=== PATIENT | female | born 1985 | race Caucasian/White ===

== ENCOUNTER 2016-10-31 06:00 | Outpatient (RCR) | payer MEDICAID ==
[~2016-10-31 06:00] MED LIST: /ONDA4TA; BACT2CRE; CEPH500T; DIFL150T; LEVA500T; SULF800T; TRAM50TA2; VIGAMOX 0.5%
== END 2016-11-13 ==
LOC: M OT 06:00
PROVIDERS: ATTEND Family Medicine
DX: Z51.89 Encounter for other specified aftercare (principal); G56.03 Carpal tunnel syndrome, bilateral upper limbs

== ENCOUNTER → 2018-08-12 | Outpatient (CLI) | payer OTHER ==
[2018-08-12 18:51] LABS: BASO # 0.1 10^3/uL (0.0-0.2); BASO % 0.5 % (0.0-1.0); EOS # 0.1 10^3/uL (0.0-0.50); EOS % 1.3 % (0.0-3.0); HEMATOCRIT 36.6 % (36.0-47.0); HEMOGLOBIN 11.6 g/dl (12.0-15.5); IMMATURE GRANULOCYTE % 0.1 % (0-3.0); LYMPH # 1.7 10^3/uL (1.5-4.5); LYMPH % 16.8 % (24.0-44.0); MEAN CORPUSCULAR HEMOGLOBIN 28.2 pg (27.0-33.0); MEAN CORPUSCULAR HGB CONC 31.7 g/dl (32.0-36.5); MEAN CORPUSCULAR VOLUME 89.1 fl (80.0-96.0); MONO # 0.5 10^3/uL (0.0-0.8); MONO % 4.6 % (0.0-5.0); NEUTROPHILS # 7.6 10^3/uL (1.8-7.7); NEUTROPHILS % 76.7 % (36.0-66.0); PLATELET COUNT, AUTOMATED 340 10^3/uL (150-450); RED BLOOD COUNT 4.11 10^6/uL (4.00-5.40); RED CELL DISTRIBUTION WIDTH 14.4 % (11.5-14.5); WHITE BLOOD COUNT 9.8 10^3/uL (4.0-10.0)
[2018-08-12 21:00] LABS: CHLAMYDIA DNA AMPLIFICATION NEGATIVE (NEGATIVE); GC DNA AMPLIFICATION NEGATIVE (NEGATIVE)
[2018-08-13 11:06] LABS: HBsAg Prenatal NEGATIVE (NEGATIVE); HIV 1&2 SCREEN CENTAUR NEGATIVE (NEGATIVE); RUBELLA IgG QUALITATIVE IMMUNE (IMMUNE)
== END ==
LOC: M SMT 14:44
DX: Z36.89 Encounter for other specified antenatal screening (principal)
CPT/HCPCS: 86762

== ENCOUNTER 2019-05-26 23:32 | Emergency (ER) | payer MEDICAID, SELFPAY ==
[~2019-05-26] VITALS: Ht 167.6 cm; Wt 113.6 kg
[~2019-05-26 23:32] MED LIST changes: -/ONDA4TA; +ONDA-1
[2019-05-27] MEDS ORDERED: MORPHINE 10 MG/ML 1ML VIAL (J2270) IM ONE (00:30)
[2019-05-27] MEDS ORDERED: NORCO 5/325MG TABLET (BULK FOR ED) PO ONE (02:00)
[2019-05-27 02:25] VITALS: BP 137/65
--- NOTE | 2019-05-27 10:23 | REP ---
REASON: Trauma. There is a fracture involving the proximal metaphysis of the tibia which is hairline in appearance. There is communication of the fracture line with the lateral tibial eminence which is considered intra-articular. There is a knee joint effusion. IMPRESSION: Proximal tibial fracture as described above with a joint effusion. Electronically Signed by Fernie Hubbard DO 05/27/2019 12:31 P
== END 2019-05-27 02:26 | disposition home or self-care (01) ==
LOC: M ED 23:32
DX: S82.102A Unspecified fracture of upper end of left tibia, initial encounter for closed fracture (principal); W50.0XXA Accidental hit or strike by another person, initial encounter; Y92.410 Unspecified street and highway as the place of occurrence of the external cause; Z79.899 Other long term (current) drug therapy; Z88.0 Allergy status to penicillin; Z88.5 Allergy status to narcotic agent
CPT/HCPCS: 73564; 73700; 96372; 99284; J2270

== ENCOUNTER → 2019-05-30 | Outpatient (CLI) | payer SELFPAY ==
--- NOTE | 2019-05-31 12:46 | REP ---
MRI LEFT KNEE WITHOUT CONTRAST: 05/30/2019. Clinical history: Trauma. Tibial plateau fracture. Avulsion ACL insertion. Evaluate for ACL tear or meniscal tear. Technique: Axial fat suppressed T2, with coronal and sagittal PD and fat suppressed T2 sequences. Comparison: X-ray and CT left knee 05/27/2019. Findings: There is a large hemarthrosis prominent fluid level in the suprapatellar bursa. Comminuted tibial plateau fracture noted extending vertically and obliquely from the lateral tibial spine toward the tibial metaphysis in the medial tibial plateau. There is intra-articular component and comminution. ACL attachment fragment avulsed. Talus intact. There is abnormal signal in the mid to distal ACL with a few fibers suggest it is contiguous but I suspect a high-grade partial tear. The medial meniscus shows no gross tear. There is some increased signal posterior to the posterior horn on the T2 images and deep to the capsule suggesting meniscocapsular injury. There is no significant chondromalacia or osteochondral defect. The MCL shows some increased signal along the posterior fibers suggesting strain. I do not see a complete tear. There is attenuation of the medial patellar retinaculum and signal increase at the junction of the anterior band. It is bowed by a large effusion extending to the bursal recess about the medial femoral condyle. There is fluid and edema deep and superficial to that structure. The lateral meniscus is without a definite tear. There is fluid posterior to the posterior horn with attenuation of popliteus tendon. Some intrameniscal grade 2 signal suggested, but no loose body or chondromalacia. There is extensive marrow edema in the lateral tibial plateau subjacent to the tibial spines and from that comminuted tibial plate plateau fracture described. The lateral collateral ligamentous complex shows strain and partial tearing of lateral patellar retinaculum is without a definite tear. Large hemarthrosis extending into the bursal recess deep to it and the adjacent to the lateral femoral condyle subcutaneous edema all around the knee. The extensor mechanism shows quadriceps tendon intact. Patella without bone bruise or fracture. There is no chondromalacia. Large effusion without patellar subluxation. The patellar tendon shows some waviness without a tear. This is due to the effusion. Impression: 1. Comminuted tibial plateau fracture with avulsion fragment and insertion of the ACL distracted and displaced from the tibial plateau and with high-grade partial tear suggested at the ACL with only a few fibers seen. 2. Meniscocapsular injury with fluid posterior to the posterior horn medial meniscus without intrasubstance signal tear communicating to an articular surface or loose body. 3. Lateral meniscus, PCL intact. Popliteus tendon attenuated. 4. Significant injury to the lateral collateral ligamentous complex suspected strain MCL and medial patellar retinaculum. 5. Large hemarthrosis. No patellar bone bruise or fracture. No femoral fracture. Extensor mechanism without tear. Electronically Signed by Vishal Harrell MD 05/31/2019 08:32 P
== END ==
LOC: M RAD 13:01
PROVIDERS: ATTEND Orthopaedic Surgery Sports Medicine
DX: S82.252A Displaced comminuted fracture of shaft of left tibia, initial encounter for closed fracture (principal); X58.XXXA Exposure to other specified factors, initial encounter; Y92.9 Unspecified place or not applicable; M25.462 Effusion, left knee; M25.062 Hemarthrosis, left knee

== ENCOUNTER 2019-07-09 14:30 | Outpatient (RCR) | payer MEDICAID, OTHER | END 2019-07-13 | disposition home or self-care (01) | LOC: M PT 14:30 | PROVIDERS: ATTEND Orthopaedic Surgery Sports Medicine | DX: S83.512D Sprain of anterior cruciate ligament of left knee, subsequent encounter (principal) ==

== ENCOUNTER 2019-07-30 07:00 | Outpatient (RCR) | payer MEDICAID, OTHER | END 2019-08-13 | LOC: M PT 07:00 | PROVIDERS: ATTEND Orthopaedic Surgery Sports Medicine | DX: S83.512D Sprain of anterior cruciate ligament of left knee, subsequent encounter (principal) ==

== ENCOUNTER → 2019-08-13 | Outpatient (CLI) | payer OTHER ==
[2019-08-13 13:30] LABS: HEMATOCRIT 40.5 % (36.0-47.0); HEMOGLOBIN 12.3 g/dl (12.0-15.5); MEAN CORPUSCULAR HEMOGLOBIN 27.2 pg (27.0-33.0); MEAN CORPUSCULAR HGB CONC 30.4 g/dl (32.0-36.5); MEAN CORPUSCULAR VOLUME 89.4 fl (80.0-96.0); PLATELET COUNT, AUTOMATED 364 10^3/uL (150-450); RED BLOOD COUNT 4.53 10^6/uL (4.00-5.40); WHITE BLOOD COUNT 6.8 10^3/uL (4.0-10.0)
[2019-08-13 13:37] LABS: FOLLICLE STIMULATING HORMONE 4.7 mIU/mL; LUTEINIZING HORMONE 6.9 mIU/mL; PROLACTIN 11.9 NG/ML
[2019-08-13 14:00] LABS: HCG, SERUM QUALITATIVE NEGATIVE (NEGATIVE)
== END ==
LOC: M SMT 08:38
PROVIDERS: ATTEND Advanced Practice Midwife
DX: N92.6 Irregular menstruation, unspecified (principal)

== ENCOUNTER → 2019-10-28 | Outpatient (CLI) | payer OTHER | LOC: M PLALAB 12:49 | PROVIDERS: ATTEND Advanced Practice Midwife | DX: O36.80X0 Pregnancy with inconclusive fetal viability, not applicable or unspecified (principal) ==

== ENCOUNTER → 2019-11-05 | Outpatient (CLI) | payer OTHER ==
--- NOTE | 2019-11-06 04:32 | REP ---
Clinical: Dating and viability. Technique: Transabdominal pelvic ultrasound followed by transvaginal examination for better evaluation of the endometrium and adnexa with color Doppler evaluation. Findings: Ultrasound examination demonstrates a single live intrauterine . CRL of 25 mm corresponds to 9 weeks 2 days gestational age. Estimated date of delivery based on current examination 06/07/2020. heart rate equals 172 beats per minute. No gross abnormalities are identified. Right posterior fibroid measuring 3.4 cm suggested. Impression: Single live early intrauterine and 9 weeks 2 days gestational age.
== END ==
LOC: M WHC 13:06
PROVIDERS: ATTEND Advanced Practice Midwife
DX: O36.80X0 Pregnancy with inconclusive fetal viability, not applicable or unspecified (principal); Z3A.09 9 weeks gestation of pregnancy

== ENCOUNTER 2019-11-18 18:06 | Emergency (ER) | payer OTHER ==
[~2019-11-18] VITALS: Ht 170.2 cm; Wt 119.4 kg
[2019-11-18] MEDS ORDERED: PRENTAB9 PO (18:19)
[2019-11-18 19:13] LABS: BASO # 0.1 10^3/uL (0.0-0.2); BASO % 0.6 % (0.0-1.0); EOS # 0.1 10^3/uL (0.0-0.5); EOS % 1.3 % (0.0-3.0); HEMATOCRIT 42.7 % (36.0-47.0); HEMOGLOBIN 13.1 g/dl (12.0-15.5); LYMPH # 1.6 10^3/uL (1.5-5.0); MEAN CORPUSCULAR HEMOGLOBIN 28.4 pg (27.0-33.0); MEAN CORPUSCULAR HGB CONC 30.7 g/dl (32.0-36.5); MEAN CORPUSCULAR VOLUME 92.4 fl (80.0-96.0); MONO # 0.5 10^3/uL (0.0-0.8); NEUTROPHILS # 8.2 10^3/uL (1.5-8.5); NEUTROPHILS % 77.6 % (36.0-66.0); PLATELET COUNT, AUTOMATED 350 10^3/uL (150-450); RED BLOOD COUNT 4.62 10^6/uL (4.00-5.40); WHITE BLOOD COUNT 10.6 10^3/uL (4.0-10.0)
[2019-11-18 19:39] LABS: HCG, SERUM QUALITATIVE POSITIVE (NEGATIVE)
[2019-11-18 19:42] LABS: ALBUMIN 3.7 GM/DL (3.2-5.2); ALT/SGPT 25 U/L (12-78); BILIRUBIN,DIRECT < 0.1 MG/DL (0.0-0.2); BILIRUBIN,TOTAL 0.3 MG/DL (0.2-1.0); BLOOD UREA NITROGEN 4 MG/DL (7-18); CALCIUM LEVEL 9.1 MG/DL (8.5-10.1); CARBON DIOXIDE LEVEL 29 MEQ/L (21-32); CHLORIDE LEVEL 104 MEQ/L (98-107); CREATININE FOR GFR 0.79 MG/DL (0.55-1.30); GLOMERULAR FILTRATION RATE > 60.0 (>60); GLUCOSE, FASTING 87 MG/DL (70-100); LIPASE 68 U/L (73-393); POTASSIUM SERUM 3.9 MEQ/L (3.5-5.1); SODIUM LEVEL 138 MEQ/L (136-145); TOTAL PROTEIN 7.4 GM/DL (6.4-8.2)
[2019-11-18] MEDS ORDERED: METOCLOPRAMIDE INJ 10MG/2ML VIAL (J2765) IV ONE (21:15)
[2019-11-18] MEDS ORDERED: NS 1,000 ML IV ONE (21:15)
[2019-11-18] MEDS ORDERED: CEPHALEXIN 500 MG CAP PO ONE (21:15)
[2019-11-19] MEDS ORDERED: REGL10TA6 PO
[2019-11-19] MEDS ORDERED: KEFL500C17 PO (00:09)
[2019-11-19 00:17] VITALS: BP 148/67
== END 2019-11-19 00:21 | disposition home or self-care (01) ==
LOC: M ED 18:06
DX: R11.10 Vomiting, unspecified (principal); R42 Dizziness and giddiness; Z88.0 Allergy status to penicillin; Z88.5 Allergy status to narcotic agent
CPT/HCPCS: 80048; 80076; 81001; 83690; 84703; 85025; 87086; 96361; 96374; 99284; J2765

== ENCOUNTER → 2019-11-23 | Outpatient (CLI) | payer OTHER ==
[~2019-11-23] MED LIST changes: +KEFL500C17 PO; +PRENTAB9 PO; +REGL10TA6 PO
== END ==
LOC: M PLALAB 15:27
PROVIDERS: ATTEND Advanced Practice Midwife
DX: Z13.79 Encounter for other screening for genetic and chromosomal anomalies (principal)

== ENCOUNTER → 2019-11-26 | Outpatient (CLI) | payer OTHER, MEDICAID ==
[2019-11-26 15:02] LABS: HEMATOCRIT 39.9 % (36.0-47.0); HEMOGLOBIN 12.8 g/dl (12.0-15.5); MEAN CORPUSCULAR HEMOGLOBIN 29.3 pg (27.0-33.0); MEAN CORPUSCULAR HGB CONC 32.1 g/dl (32.0-36.5); MEAN CORPUSCULAR VOLUME 91.3 fl (80.0-96.0); PLATELET COUNT, AUTOMATED 341 10^3/uL (150-450); RED BLOOD COUNT 4.37 10^6/uL (4.00-5.40); WHITE BLOOD COUNT 10.2 10^3/uL (4.0-10.0)
[2019-11-26 15:26] LABS: ALT/SGPT 41 U/L (12-78); BILIRUBIN,TOTAL 0.4 MG/DL (0.2-1.0); CREATININE FOR GFR 0.68 MG/DL (0.55-1.30); GLOMERULAR FILTRATION RATE > 60.0 (>60); LDH LACTATE DEHYDROGENASE 154 U/L (84-246); URIC ACID 3.2 MG/DL (2.6-6.0)
[2019-11-26 15:32] LABS: TOTAL PROTEIN,RANDOM URINE 38.1 MG/DL (0.0-12.0)
[2019-11-26 15:36] LABS: HEMOGLOBIN A1c 4.8 %
[2019-11-27 09:34] LABS: RUBELLA IgG QUALITATIVE IMMUNE (IMMUNE)
[2019-11-27 10:04] LABS: HEPATITIS C VIRUS ABY INDEX < 0.0 INDEX (<0.8); HIV 1&2 SCREEN CENTAUR NEGATIVE (NEGATIVE)
== END ==
LOC: M PLALAB 11:07
PROVIDERS: ATTEND Advanced Practice Midwife
DX: O99.211 Obesity complicating pregnancy, first trimester (principal); Z3A.00 Weeks of gestation of pregnancy not specified; E66.9 Obesity, unspecified

== ENCOUNTER → 2019-12-09 | Outpatient (CLI) | payer OTHER, MEDICAID ==
[2019-12-09 18:41] LABS: GLUCOSE CHALLENGE TEST 1 HOUR 110 MG/DL (LESS THAN 140)
[2019-12-11 08:32] LABS: HEPATITIS B SURFACE ANTIGEN NEGATIVE (NEGATIVE)
== END ==
LOC: M PLALAB 13:29
PROVIDERS: ATTEND Advanced Practice Midwife
DX: O99.211 Obesity complicating pregnancy, first trimester (principal); Z3A.00 Weeks of gestation of pregnancy not specified

== ENCOUNTER → 2019-12-17 | Outpatient (REF) | payer OTHER, MEDICAID ==
[2019-12-17 19:12] LABS: CHLAMYDIA DNA AMPLIFICATION NEGATIVE (NEGATIVE); GC DNA AMPLIFICATION NEGATIVE (NEGATIVE)
== END ==
LOC: M SFHCWAGY 16:50
PROVIDERS: ATTEND Advanced Practice Midwife
DX: Z34.82 Encounter for supervision of other normal pregnancy, second trimester (principal); Z3A.00 Weeks of gestation of pregnancy not specified

== ENCOUNTER → 2020-01-14 | Outpatient (CLI) | payer OTHER, MEDICAID ==
--- NOTE | 2020-01-14 16:41 | REP ---
OB ULTRASOUND: Real-time sonographic evaluation of the gravid uterus is performed. There is a single living intrauterine gestation. The estimated gestational age is 19 weeks 4 days, EDC 06/05/2020. Today's measurements indicate appropriate growth. BPD 46 mm = 19 weeks 6 days, 56th percentile HC 168 mm = 19 weeks 3 days, 47th percentile AC 139 mm = 19 weeks 2 days, 44th percentile FL 33 mm = 20 weeks 2 days, 69th percentile HC/AC ratio 1.21 within normal range of 1.06-1.25. Estimated weight 312 grams, 53rd percentile. Cervix is closed and measures 3.1 cm in length. heart rate 161 beats per minute. SEEN/GROSSLY UNREMARKABLE Lateral ventricles Yes Posterior fossa Yes Upper lip Yes Four-chamber heart Yes echogenic focus left ventricle likely related related to chordae tendineae LVOT Yes RVOT Yes Stomach Yes Cord insertion Yes Three vessel cord Yes Kidneys Yes Bladder Yes Spine No position: Vertex. Placenta: Anterior and grade 1 with no previa or abruption. Amniotic fluid: Within normal limits.
== END ==
LOC: M WHC 13:00
PROVIDERS: ATTEND Advanced Practice Midwife
DX: Z34.82 Encounter for supervision of other normal pregnancy, second trimester (principal); Z3A.19 19 weeks gestation of pregnancy

== ENCOUNTER → 2020-02-19 | Outpatient (CLI) | payer OTHER ==
--- NOTE | 2020-02-20 07:43 | REP ---
OB ULTRASOUND: Real-time sonographic evaluation of gravid uterus performed. There is a single living intrauterine gestation, estimated gestational age 24 weeks 5 days, EDC 06/05/2020. Today's measurements indicate appropriate growth. BPD 61 mm = 24 weeks 5 days, 50th percentile HC 224 mm = 24 weeks 3 days, 45th percentile AC 203 mm = 24 weeks 6 days, 54th percentile Femur length 46 mm = 25 weeks 2 days, 64th percentile HC/AC ratio 1.11, within normal range 1.02 - 1.21. Estimated weight 758 grams, 52nd percentile. Cervix is closed and measures 3.2 cm in length. heart rate 153 beats per minute. SEEN/GROSSLY UNREMARKABLE Lateral ventricles No Posterior fossa No Upper lip No Four-chamber heart: Echogenic focus left ventricle, likely related to chordae tendineae. LVOT Yes RVOT Yes Stomach Yes Cord insertion Yes Three vessel cord Yes Kidneys Yes Bladder Yes Spine Yes position: Vertex. Placenta: Anterior and grade 1 with no previa or abruption. Amniotic fluid: Within normal limits.
== END ==
LOC: M WHC 13:02
PROVIDERS: ATTEND Advanced Practice Midwife
DX: O34.211 Maternal care for low transverse scar from previous cesarean delivery (principal); Z3A.25 25 weeks gestation of pregnancy

== ENCOUNTER → 2020-03-09 | Outpatient (REF) | payer OTHER ==
[2020-03-09 13:22] LABS: HEMATOCRIT 35.2 % (36.0-47.0); HEMOGLOBIN 11.2 g/dl (12.0-15.5); MEAN CORPUSCULAR HEMOGLOBIN 29.6 pg (27.0-33.0); MEAN CORPUSCULAR HGB CONC 31.8 g/dl (32.0-36.5); MEAN CORPUSCULAR VOLUME 93.1 fl (80.0-96.0); PLATELET COUNT, AUTOMATED 348 10^3/uL (150-450); RED BLOOD COUNT 3.78 10^6/uL (4.00-5.40); WHITE BLOOD COUNT 12.1 10^3/uL (4.0-10.0)
== END ==
LOC: M PLALAB 11:24
PROVIDERS: ATTEND Advanced Practice Midwife
DX: O34.211 Maternal care for low transverse scar from previous cesarean delivery (principal)

== ENCOUNTER → 2020-03-14 | Outpatient (CLI) | payer OTHER | LOC: M LAB 06:50 | PROVIDERS: ATTEND Advanced Practice Midwife | DX: O34.211 Maternal care for low transverse scar from previous cesarean delivery (principal) ==

== ENCOUNTER → 2020-03-25 | Outpatient (REF) | payer OTHER | LOC: M SFHCWAGY 16:54 | PROVIDERS: ATTEND Advanced Practice Midwife | DX: O34.211 Maternal care for low transverse scar from previous cesarean delivery (principal); N76.0 Acute vaginitis ==

== ENCOUNTER → 2020-04-22 | Outpatient (CLI) | payer OTHER ==
--- NOTE | 2020-04-23 14:16 | REP ---
OB ULTRASOUND: Real-time sonographic evaluation of gravid uterus performed. There is a single living intrauterine gestation, estimated gestational age 33 weeks 5 days, EDC 06/05/2020. Today's measurements indicate appropriate growth. BPD 86 mm = 34 weeks 5 days, 64th percentile HC 306 mm = 34 weeks 1 day, 56th percentile AC 299 mm = 33 weeks 6 days, 53rd percentile Femur length 66 mm = 34 weeks 1 day, 57th percentile HC/AC ratio 1.02, within normal range 0.95-1.13. Estimated weight 2340 grams, 52nd percentile. Cervix closed and measures 3.1 cm in length. heart rate 143 beats per minute. Amniotic fluid within normal limits. DEIDRA 11.8, within normal range 8.2-24.7. position vertex. Placenta anterior and grade 2 with no previa or abruption.
== END ==
LOC: M WHC 14:00
PROVIDERS: ATTEND Advanced Practice Midwife
DX: O99.213 Obesity complicating pregnancy, third trimester (principal); Z3A.33 33 weeks gestation of pregnancy

== ENCOUNTER 2020-05-31 14:25 | Inpatient (IN) | payer OTHER ==
[2020-05-31] VITALS (9 sets, daily range): BP systolic 141–184; BP diastolic 58–83
[2020-05-31] MEDS ORDERED: PROMETHAZINE INJ 25 MG/ML VIAL (J2550) As Ordered ONE (16:44)
[2020-05-31] MEDS ORDERED: BUTORPHANOL 2 MG/ML INJ (J0595) As Ordered ONE (16:44)
[2020-05-31] MEDS ORDERED: OXYTOCIN 30 UNITS IN 0.9% NaCl 500ML IV BAG (J2590) As Ordered ONE (19:40)
[2020-05-31 21:19] LABS: HEMOGLOBIN 11.7 g/dl (12.0-15.5); MEAN CORPUSCULAR HGB CONC 31.6 g/dl (32.0-36.5); MEAN CORPUSCULAR VOLUME 91.8 fl (80.0-96.0); PLATELET COUNT, AUTOMATED 285 10^3/uL (150-450); RED BLOOD COUNT 4.03 10^6/uL (4.00-5.40); WHITE BLOOD COUNT 12.8 10^3/uL (4.0-10.0)
[2020-05-31] MEDS ORDERED: METHYLERGONOVINE MALEATE 0.2 MG TAB PO PRN (21:45)
[2020-05-31] MEDS ORDERED: MEASLES,MUMPS,RUBELLA VACCINE INJ (MMR-II) (90707) SC SCH (21:45)
[2020-05-31] MEDS ORDERED: RHOGAM 300 MCG (1500 IU) INJ (J2790) IM SCH (21:45)
[2020-05-31] MEDS ORDERED: MOM 30ML SUSPENSION UDC PO PRN (21:45)
[2020-05-31] MEDS ORDERED: ACETAMINOPHEN 500 MG TAB PO PRN (21:45)
[2020-05-31] MEDS ORDERED: DOCUSATE SODIUM 100 MG CAP PO PRN (21:45)
[2020-05-31] MEDS ORDERED: DIBUCAINE 1% OINTMENT 30GM TOP PRN (21:45)
[2020-05-31] MEDS ORDERED: ACETAMINOPHEN TAB 650MG DOSE (2X325MG) PO PRN (21:45)
[2020-05-31] MEDS ORDERED: LIDOCAINE 1% MDV 20ML VIAL INFIL ONE (21:45)
[2020-05-31] MEDS ORDERED: IBUPROFEN 600MG TAB PO PRN (21:45)
[2020-05-31] MEDS ORDERED: OXYTOCIN DRIP 30 UNITS in IV 1 EA IV SCH (21:59)
[2020-06-01 06:00] VITALS: BP 133/66
[2020-06-01] MEDS: IBUPROFEN 800 MG TAB PO PRN ×2 (08:20→22:09)
--- NOTE | 2020-06-01 08:25 | IPNPDOC ---
Progress Note Date of Service: Jun 01, 2020 Day#: 1 Progress Note SUBJECT: She is doing well without complaints. Ambulating, voiding and pain is well-controlled. Reports minimal lochia. +breast feeding OBJECTIVE: Alert and oriented times three. Abdomen: Fundus firm at U-2. Soft, NTTP. Ext: neg calf tenderness. ASSESSMENT: day #1 status post normal spontaneous vaginal delivery. Recovering in stable condition. PLAN: 1. Continue routine care 2. Discharge plans for tomorrow VS, I&O, 24H, Fishbone Vital Signs/I&O Vital Signs Date Time Temp Pulse Resp B/P (MAP) Pulse Ox O2 Delivery O2 Flow Rate FiO2 06/01/20 06:00 97.8 77 18 133/66 (88) 98 Room Air I&O- Last 24 Hours up to 6 AM 06/01/20 06:00 Intake Total 500 ml Output Total 1300 ml Balance -800 ml Laboratory Data 24H LABS Laboratory Tests 2 05/31/20 15:10: Nucleated Red Blood Cells % (auto) 0.0 CBC/BMP Laboratory Tests 05/31/20 15:10 MIGUE DONALDSON MD. Jun 01, 2020 08:25
[2020-06-01] MEDS: PRENATAL VITAMINS CHEWABLE TABLET PO SCH (09:00)
[2020-06-01 18:00] VITALS: BP 141/81
[2020-06-02 06:00] VITALS: BP 158/90
[2020-06-02] MEDS: IBUPROFEN 800 MG TAB PO PRN (06:27)
[2020-06-02 07:25] VITALS: BP 140/88
[2020-06-02] MEDS: PRENATAL VITAMINS CHEWABLE TABLET PO SCH (08:41)
--- NOTE | 2020-07-18 11:12 | HPE ---
DATE OF ADMISSION: 05/31/2020 REASON FOR ADMISSION: Spontaneous rupture of membranes. HISTORY OF PRESENT ILLNESS: Ms. Willoughby is a 35-year-old 2, para 1, who presents for labor with spontaneous rupture of membranes. She reports a gush of clear fluid that occurred at approximately 11 am today and this was followed by contractions. She reports active movements. She denies any vaginal bleeding. Her course has been unremarkable. PAST MEDICAL HISTORY: None. PAST SURGICAL HISTORY: She had a section. Following that section, her 9-week-old son from sudden syndrome (SIDS). MEDICATIONS: Include vitamins and Valtrex. SOCIAL HISTORY: She denies any alcohol, tobacco, or drug use during her . OBSTETRICAL HISTORY: She is a 2, para 1. Had had a term section for nonreassuring tracing. PHYSICAL EXAMINATION: VITAL SIGNS: Blood pressure mildly elevated. She is afebrile. She has a category heart rate tracing with contractions on tocometer. GENERAL APPEARANCE: Well-appearing. In no acute distress. LUNGS: Clear to auscultation bilaterally. CARDIOVASCULAR: Heart regular rate and rhythm. ABDOMEN: Gravid and nontender. CERVICAL: She was 2-3 cm dilated, 50% effaced, -2 station, and grossly ruptured. LABORATORY DATA: Her blood type is O positive. Antibody screen was negative. Rubella is immune. RPR is nonreactive. Hepatitis surface antigen is negative. She had a normal one hour Glucola. She is GBS negative. ASSESSMENT: * Mrs. Willoughby is a 35-year-old 2, para 1, that presents with spontaneous rupture of membranes. * Reassuring status. * Elevated blood pressure concerning for gestational hypertension. * History of prior section. PLAN: * Admit to labor and delivery. CBC, RPR, type and screen, preeclampsia panel. * Patient has been thoroughly counseled regarding mode of delivery throughout her , as well as on admission. I discussed the repeat section versus trial of labor after section. After consultation, patient desires to proceed with trial of labor after section. BRYANT
--- NOTE | 2020-07-21 15:47 | DN ---
DATE OF DELIVERY: 05/31/2020 TIME OF : 1950 GENDER: Female APGARS: 9 and 9 WEIGHT: 3540 grams, 7 pounds 13 ounces LACERATION: Left labial. ANESTHESIA: None. COUNTS: Five laparotomy sponges counted for prior and after delivery. Three sharps removed from the delivery field. DESCRIPTION OF DELIVERY: On 05/31/2020 at 1953, Mrs. Willoughby a 35-year-old 2, now para 2, had a spontaneous vaginal delivery of a live born female with Apgars 9 and 9, weight 3540 grams or 7 pounds 13 ounces. Head was delivered over an intact peritoneum followed by delivery of shoulders and corpus. was handed to mom with a good cry. Cord clamping was performed and this has been clamped and was cut by the support person under my direction. Placenta was then drained and delivered grossly intact. A premixed bag of 500 mL of normal saline with 30 units of Pitocin was bolused along with uterine massage. The uterus was firm. On inspection, there was a left labial laceration. This area was infused with 1% Lidocaine and was repaired with 3-0 Vicryl Rapide. On re-inspection of the cervix and vagina, the peritoneum was grossly intact. Mom and baby recovering in stable condition. Mom has decided to name her daughter Yakelin. BRYANT
[2020-07-25 03:48] LABS: ALT/SGPT 20 U/L (12-78); BILIRUBIN,TOTAL 0.3 MG/DL (0.2-1.0); CREATININE FOR GFR 0.72 MG/DL (0.55-1.30); GLOMERULAR FILTRATION RATE > 60.0 (>60); LDH LACTATE DEHYDROGENASE 168 U/L (84-246); URIC ACID 5.1 MG/DL (2.6-6.0)
== END 2020-06-02 12:55 | disposition home or self-care (01) | DRG 560 ==
LOC: M LDI 14:25 → M OBS 22:31
PROVIDERS: ADMIT Obstetrics & Gynecology; ATTEND Obstetrics & Gynecology
PROC: 10E0XZZ Delivery of Products of Conception, External Approach (ICD-10-PCS; principal; 2020-05-31)
PROC: 0HQ9XZZ Repair Perineum Skin, External Approach (ICD-10-PCS; 2020-05-31)
DX: O34.211 Maternal care for low transverse scar from previous cesarean delivery (principal); O70.0 First degree perineal laceration during delivery; Z37.0 Single live birth; Z3A.39 39 weeks gestation of pregnancy

== ENCOUNTER → 2020-07-01 | Outpatient (CLI) | payer OTHER ==
[2020-07-01 18:36] LABS: FREE T4 0.78 NG/DL (0.76-1.46); THYROID STIMULATING HORMONE 1.34 uIU/ML (0.358-3.740)
== END ==
LOC: M PLALAB 14:25
PROVIDERS: ATTEND Advanced Practice Midwife
DX: E03.9 Hypothyroidism, unspecified (principal)

== ENCOUNTER 2022-01-06 22:24 | Emergency (ER) | payer OTHER ==
[~2022-01-06] VITALS: Ht 170.2 cm; Wt 122.7 kg
[2022-01-07 01:15] VITALS: BP 123/92
== END 2022-01-07 01:21 | disposition home or self-care (01) ==
LOC: M ED 22:24
DX: M79.641 Pain in right hand (principal); G89.18 Other acute postprocedural pain; Z88.0 Allergy status to penicillin; Z88.5 Allergy status to narcotic agent

== ENCOUNTER 2022-02-10 16:11 | Emergency (ER) | payer OTHER ==
[~2022-02-10] VITALS: Ht 170.2 cm; Wt 122.6 kg
[2022-02-10 17:22] LABS: APPEARANCE, URINE CLEAR (CLEAR); BACTERIA, URINE AUTO NEGATIVE (NEGATIVE); BILIRUBIN, URINE AUTO NEGATIVE (NEGATIVE); BLOOD, URINE BLOOD 2+ (NEGATIVE); COLOR, URINE YELLOW (YELLOW); GLUCOSE, URINE (UA) AUTO NEGATIVE (NEGATIVE); KETONE, URINE AUTO NEGATIVE (NEGATIVE); LEUKOCYTE ESTERASE, URINE AUTO NEGATIVE (NEGATIVE); MUCUS, URINE SMALL (NEGATIVE); NITRITE, URINE AUTO NEGATIVE (NEGATIVE); PROTEIN, URINE AUTO NEGATIVE (NEGATIVE); RBC, URINE AUTO 0 /HPF (0-3); SQUAMOUS EPITHELIAL CELL UR AU 2 /HPF (0-6); UROBILINOGEN, URINE AUTO 0.2 mg/dL (0.0-2.0); WBC, URINE AUTO 2 /HPF (0-3)
[2022-02-10 17:24] LABS: HEMATOCRIT 37.4 % (36.0-47.0); HEMOGLOBIN 11.5 g/dl (12.0-15.5); MEAN CORPUSCULAR HEMOGLOBIN 28.1 pg (27.0-33.0); MEAN CORPUSCULAR HGB CONC 30.7 g/dl (32.0-36.5); MEAN CORPUSCULAR VOLUME 91.4 fl (80.0-96.0); PLATELET COUNT, AUTOMATED 301 10^3/uL (150-450); RED BLOOD COUNT 4.09 10^6/uL (4.00-5.40)
[2022-02-10 19:45] VITALS: BP 135/66
== END 2022-02-10 20:26 | disposition home or self-care (01) ==
LOC: M ED 16:11
DX: O20.9 Hemorrhage in early pregnancy, unspecified (principal); R35.0 Frequency of micturition; Z88.0 Allergy status to penicillin; Z88.5 Allergy status to narcotic agent; Z3A.01 Less than 8 weeks gestation of pregnancy

== ENCOUNTER → 2022-02-12 | Outpatient (CLI) | payer OTHER | LOC: M PLALAB 10:42 | PROVIDERS: ATTEND Advanced Practice Midwife | DX: O20.0 Threatened abortion (principal) ==

== ENCOUNTER → 2022-02-14 | Outpatient (CLI) | payer OTHER | LOC: M LAB 15:28 | PROVIDERS: ATTEND Advanced Practice Midwife | DX: O20.0 Threatened abortion (principal) ==

== ENCOUNTER → 2022-04-05 | Outpatient (CLI) | payer OTHER ==
[2022-04-05 17:11] LABS: BASO # 0.1 10^3/uL (0.0-0.2); BASO % 1.1 % (0.0-1.0); EOS # 0.2 10^3/uL (0.0-0.5); EOS % 2.7 % (0.0-3.0); HEMATOCRIT 37.4 % (36.0-47.0); HEMOGLOBIN 11.5 g/dl (12.0-15.5); LYMPH # 1.5 10^3/uL (1.5-5.0); LYMPH % 21.2 % (24.0-44.0); MEAN CORPUSCULAR HEMOGLOBIN 27.3 pg (27.0-33.0); MEAN CORPUSCULAR HGB CONC 30.7 g/dl (32.0-36.5); MEAN CORPUSCULAR VOLUME 88.8 fl (80.0-96.0); MONO # 0.3 10^3/uL (0.0-0.8); MONO % 4.8 % (2.0-8.0); NEUTROPHILS % 69.9 % (36.0-66.0); PLATELET COUNT, AUTOMATED 333 10^3/uL (150-450); RED BLOOD COUNT 4.21 10^6/uL (4.00-5.40); WHITE BLOOD COUNT 7.1 10^3/uL (4.0-10.0)
[2022-04-05 17:27] LABS: INR 1.11; PROTHROMBIN TIME 14.7 SECONDS (12.7-14.5)
[2022-04-05 17:40] LABS: ALBUMIN 3.7 GM/DL (3.2-5.2); ALT/SGPT 31 U/L (12-78); BILIRUBIN,TOTAL 0.3 MG/DL (0.2-1.0); BLOOD UREA NITROGEN 12 MG/DL (7-18); CALCIUM LEVEL 8.5 MG/DL (8.5-10.1); CARBON DIOXIDE LEVEL 27 MEQ/L (21-32); CHLORIDE LEVEL 105 MEQ/L (98-107); CREATININE FOR GFR 0.78 MG/DL (0.55-1.30); GLOMERULAR FILTRATION RATE > 60.0 (>60); GLUCOSE, FASTING 88 MG/DL (70-100); POTASSIUM SERUM 4.4 MEQ/L (3.5-5.1); SODIUM LEVEL 137 MEQ/L (136-145); TOTAL PROTEIN 7.6 GM/DL (6.4-8.2)
== END ==
LOC: M LAB 15:53
PROVIDERS: ATTEND Orthopaedic Surgery
DX: G56.03 Carpal tunnel syndrome, bilateral upper limbs (principal)

== ENCOUNTER → 2022-04-05 | Outpatient (CLI) | payer OTHER | LOC: M LAB 15:57 | PROVIDERS: ATTEND Advanced Practice Midwife | DX: O20.0 Threatened abortion (principal) ==

== ENCOUNTER → 2022-05-17 | Outpatient (CLI) | payer OTHER | LOC: M LABSMTC 10:33 | PROVIDERS: ATTEND Anesthesiology | DX: Z01.818 Encounter for other preprocedural examination (principal); Z11.52 Encounter for screening for COVID-19 ==

== ENCOUNTER 2022-05-21 08:32 | Day surgery (SDC) | payer OTHER ==
[~2022-05-21] VITALS: Ht 170.2 cm; Wt 120.1 kg
[~2022-05-21 08:32] MED LIST changes: +UNRESOLVED CLARIFICATION ENTRY XX SCH; +oxyCODONE 5MG TAB PO ONE
[2022-05-21] MEDS ORDERED: ONDANSETRON 4MG 2ML VIAL As Ordered ONE (08:59)
[2022-05-21] MEDS ORDERED: propofoL 200 MG/20 ML VIAL As Ordered ONE (08:59)
[2022-05-21] MEDS ORDERED: MIDAZOLAM INJ 2MG/2ML VIAL (J2250 PER 1MG) As Ordered ONE (08:59)
[2022-05-21] MEDS ORDERED: dexameTHASONE 4 MG/ML 1ML VIAL (J1100 PER 1MG) As Ordered ONE (08:59)
[2022-05-21] MEDS ORDERED: fentaNYL 100 MCG/2 ML INJECTION As Ordered ONE ×2 (08:59→12:09)
[2022-05-21] MEDS ORDERED: LR 1,000 ML IV SCH ×2 (09:00→12:30)
[2022-05-21] MEDS: diphenhydrAMINE 50MG/ML VIAL (J1200) IV PRN ×2 (10:56→13:55)
[2022-05-21] MEDS ORDERED: CLINDAMYCIN 900 MG in IV 1 EA IV ONE (11:10)
[2022-05-21] MEDS: BUPIVACAINE/EPIN 0.5% 30 ML VIAL As Ordered ONE (12:19)
[2022-05-21] MEDS ORDERED: MORPHINE 2 MG/ML 1ML VIAL IV PRN (12:30)
[2022-05-21] MEDS ORDERED: ONDANSETRON 4MG 2ML VIAL IV PRN (12:30)
[2022-05-21] MEDS ORDERED: IBUPROFEN 800 MG TAB PO PRN (12:35)
[2022-05-21] MEDS ORDERED: FLUC150T9 PO ×2 (12:40→13:09)
[2022-05-21] MEDS ORDERED: IBUP-1114 PO (12:41)
[2022-05-21] MEDS: oxyCODONE 5MG TAB PO PRN ×2 (12:59→13:25)
[2022-05-21] MEDS ORDERED: PERC5TAB12 PO (13:09)
[2022-05-21] MEDS: fentaNYL 100 MCG/2 ML INJECTION IV PRN ×3 (13:10→13:22)
[2022-05-21 14:25] VITALS: BP 162/79
[2022-05-21] MEDS ORDERED: FLUCONAZOLE 50MG TABLET PO ONE (16:00)
== END 2022-05-21 14:35 | disposition home or self-care (01) ==
LOC: M SDC 08:32
PROVIDERS: ATTEND Orthopaedic Surgery
DX: G56.01 Carpal tunnel syndrome, right upper limb (principal); Z88.0 Allergy status to penicillin; Z88.5 Allergy status to narcotic agent; Z91.040 Latex allergy status
CPT/HCPCS: 29848; 81025; J1100; J1200; J2250; J2405; J3010

== ENCOUNTER → 2022-07-24 | Outpatient (CLI) | payer OTHER ==
[~2022-07-24] MED LIST changes: +FLUC150T9 PO; +IBUP-1114 PO; +PERC5TAB12 PO; -UNRESOLVED CLARIFICATION ENTRY XX SCH; -oxyCODONE 5MG TAB PO ONE
== END ==
LOC: M LAB 13:30
PROVIDERS: ATTEND Advanced Practice Midwife
DX: Z87.59 Personal history of other complications of pregnancy, childbirth and the puerperium (principal)

== ENCOUNTER → 2022-07-26 | Outpatient (CLI) | payer OTHER | LOC: M LAB 08:40 | PROVIDERS: ATTEND Advanced Practice Midwife | DX: Z87.59 Personal history of other complications of pregnancy, childbirth and the puerperium (principal) ==

== ENCOUNTER → 2022-09-19 | Outpatient (CLI) | payer OTHER ==
[2022-09-19 17:28] LABS: HEMATOCRIT 37.6 % (36.0-47.0); HEMOGLOBIN 11.9 g/dl (12.0-15.5); MEAN CORPUSCULAR HEMOGLOBIN 28.7 pg (27.0-33.0); MEAN CORPUSCULAR HGB CONC 31.6 g/dl (32.0-36.5); MEAN CORPUSCULAR VOLUME 90.6 fl (80.0-96.0); PLATELET COUNT, AUTOMATED 340 10^3/uL (150-450); RED BLOOD COUNT 4.15 10^6/uL (4.00-5.40); WHITE BLOOD COUNT 9.8 10^3/uL (4.0-10.0)
[2022-09-19 18:22] LABS: HIV 1&2 SCREEN CENTAUR NEGATIVE (NEGATIVE)
[2022-09-19 18:27] LABS: HEPATITIS C VIRUS ABY INDEX 0.2 INDEX (<0.8)
[2022-09-19 19:05] LABS: GC DNA AMPLIFICATION NEGATIVE (NEGATIVE)
== END ==
LOC: M PLALAB 14:55
PROVIDERS: ATTEND Advanced Practice Midwife
DX: O09.521 Supervision of elderly multigravida, first trimester (principal); Z3A.00 Weeks of gestation of pregnancy not specified

== ENCOUNTER → 2022-11-09 | Outpatient (CLI) | payer OTHER | LOC: M WHC 13:02 | PROVIDERS: ATTEND Advanced Practice Midwife | DX: O99.212 Obesity complicating pregnancy, second trimester (principal); Z3A.20 20 weeks gestation of pregnancy ==

== ENCOUNTER → 2023-01-04 | Outpatient (CLI) | payer OTHER ==
[2023-01-04 14:39] LABS: HEMATOCRIT 35.8 % (36.0-47.0); HEMOGLOBIN 10.8 g/dl (12.0-15.5); MEAN CORPUSCULAR HEMOGLOBIN 28.1 pg (27.0-33.0); MEAN CORPUSCULAR HGB CONC 30.2 g/dl (32.0-36.5); MEAN CORPUSCULAR VOLUME 93.2 fl (80.0-96.0); PLATELET COUNT, AUTOMATED 336 10^3/uL (150-450); RED BLOOD COUNT 3.84 10^6/uL (4.00-5.40); WHITE BLOOD COUNT 10.4 10^3/uL (4.0-10.0)
[2023-01-04 17:36] LABS: GC DNA AMPLIFICATION NEGATIVE (NEGATIVE)
== END ==
LOC: M PLALAB 08:45
PROVIDERS: ATTEND Advanced Practice Midwife
DX: O99.212 Obesity complicating pregnancy, second trimester (principal)

== ENCOUNTER → 2023-03-06 | Outpatient (REF) | payer OTHER | LOC: M SFHCWAGY 13:00 | PROVIDERS: ATTEND Advanced Practice Midwife | DX: O09.523 Supervision of elderly multigravida, third trimester (principal) ==

== ENCOUNTER → 2023-03-06 | Outpatient (REF) | payer OTHER | LOC: M PLALAB 14:47 | PROVIDERS: ATTEND Advanced Practice Midwife | DX: O09.523 Supervision of elderly multigravida, third trimester (principal); T14.8XXA Other injury of unspecified body region, initial encounter; Z3A.00 Weeks of gestation of pregnancy not specified; Y93.9 Activity, unspecified; Y92.9 Unspecified place or not applicable ==

== ENCOUNTER → 2023-03-12 | Outpatient (CLI) | payer OTHER ==
[~2023-03-12] MED LIST changes: +ASPI81TA26 PO; +FERR325T3 PO; +OMEP10CASR PO; +VALT500T PO
== END ==
LOC: M WHC 10:34
PROVIDERS: ATTEND Obstetrics & Gynecology
DX: O26.843 Uterine size-date discrepancy, third trimester (principal)

== ENCOUNTER → 2023-03-13 | Outpatient (CLI) | payer OTHER ==
[2023-03-13 16:00] LABS: HEMOGLOBIN 10.1 g/dl (12.0-15.5); MEAN CORPUSCULAR HGB CONC 29.7 g/dl (32.0-36.5); MEAN CORPUSCULAR VOLUME 90.9 fl (80.0-96.0); PLATELET COUNT, AUTOMATED 301 10^3/uL (150-450); RED BLOOD COUNT 3.74 10^6/uL (4.00-5.40); WHITE BLOOD COUNT 9.7 10^3/uL (4.0-10.0)
[2023-03-13 16:18] LABS: TOTAL PROTEIN,RANDOM URINE 7.8 MG/DL (0.0-14.0)
[2023-03-13 16:20] LABS: URIC ACID 5.1 MG/DL (3.1-7.8)
[2023-03-13 16:22] LABS: LDH LACTATE DEHYDROGENASE 187 U/L (120-246)
[2023-03-13 16:23] LABS: ALT/SGPT 18 U/L (7.0-40); AST/SGOT 21 U/L (<34); BILIRUBIN,TOTAL 0.3 MG/DL (0.3-1.2); CREATININE FOR GFR 0.66 MG/DL (0.55-1.30); GLOMERULAR FILTRATION RATE > 60.0 (>60)
== END ==
LOC: M PLALAB 12:31
PROVIDERS: ATTEND Advanced Practice Midwife
DX: O16.3 Unspecified maternal hypertension, third trimester (principal); Z3A.00 Weeks of gestation of pregnancy not specified

== ENCOUNTER 2023-03-18 09:06 | Inpatient (IN) | payer OTHER ==
[2023-03-18] VITALS (21 sets, daily range): BP systolic 124–157; BP diastolic 67–93
[~2023-03-18] VITALS: Ht 170.2 cm; Wt 124.6 kg
[~2023-03-18 09:06] MED LIST changes: -ASPI81TA26 PO; -FERR325T3 PO; -OMEP10CASR PO; -VALT500T PO
[2023-03-18] MEDS ORDERED: LIDOCAINE 1% MDV 20ML VIAL INFIL PRN (09:10)
[2023-03-18] MEDS ORDERED: OXYTOCIN DRIP 30 UNITS in IV 1 EA IV PRN (09:10)
[2023-03-18] MEDS ORDERED: CARBOPROST TROMETHAMINE 250 MCG/ML AMP IM PRN (09:10)
[2023-03-18] MEDS ORDERED: OXYTOCIN INJ 10UNITS/ML 1ML VIAL IM PRN (09:10)
[2023-03-18] MEDS ORDERED: TRANEXAMIC ACID INJection 1,000 MG in NS 100 ML IV PRN (09:10)
[2023-03-18] MEDS ORDERED: METHYLERGONOVINE MALEATE 0.2MG/ML 1ML VIAL IM PRN (09:10)
[2023-03-18] MEDS ORDERED: PRENTAB9 PO (09:43)
[2023-03-18] MEDS ORDERED: VALT500T PO (09:43)
[2023-03-18] MEDS ORDERED: OMEP10CASR PO (09:43)
[2023-03-18] MEDS ORDERED: FERR325T3 PO (09:43)
[2023-03-18] MEDS ORDERED: ASPI81TA26 PO (09:43)
[2023-03-18] MEDS ORDERED: HOME MED LIST COMPLETE! XX SCH (09:45)
[2023-03-18 10:46] LABS: HEMATOCRIT 33.3 % (36.0-47.0); HEMOGLOBIN 10.4 g/dl (12.0-15.5); MEAN CORPUSCULAR HEMOGLOBIN 27.7 pg (27.0-33.0); MEAN CORPUSCULAR HGB CONC 31.2 g/dl (32.0-36.5); MEAN CORPUSCULAR VOLUME 88.6 fl (80.0-96.0); PLATELET COUNT, AUTOMATED 289 10^3/uL (150-450); RED BLOOD COUNT 3.76 10^6/uL (4.00-5.40); WHITE BLOOD COUNT 8.9 10^3/uL (4.0-10.0)
[2023-03-18] MEDS ORDERED: OXYTOCIN DRIP 30 UNITS in IV 1 EA IV SCH (11:00)
[2023-03-18 11:07] LABS: URIC ACID 5.7 MG/DL (3.1-7.8)
[2023-03-18 11:09] LABS: LDH LACTATE DEHYDROGENASE 200 U/L (120-246)
[2023-03-18 11:10] LABS: ALT/SGPT 14 U/L (7.0-40); AST/SGOT 12 U/L (<34); BILIRUBIN,TOTAL 0.3 MG/DL (0.3-1.2); CREATININE FOR GFR 0.67 MG/DL (0.55-1.30); GLOMERULAR FILTRATION RATE > 60.0 (>60)
[2023-03-18] MEDS: LR 1,000 ML IV SCH ×2 (11:39→19:21)
[2023-03-18 12:21] LABS: TOTAL PROTEIN,RANDOM URINE 22.8 MG/DL (0.0-14.0)
[2023-03-18 12:26] LABS: CREATININE,RANDOM URINE 144.1 MG/DL
[2023-03-18] MEDS ORDERED: PROMETHAZINE 25MG/ML 1ML VIAL IM ONE (22:15)
[2023-03-18] MEDS ORDERED: HYDROMORPHONE HCL 0.5 MG/ 0.5 ML SYRINGE IV ONE (22:15)
[2023-03-18] MEDS ORDERED: HYDROMORPHONE HCL 0.5 MG/ 0.5 ML SYRINGE As Ordered ONE (22:36)
[2023-03-18] MEDS ORDERED: PROMETHAZINE 25MG/ML 1ML VIAL IV ONE (22:40)
[2023-03-19] VITALS (16 sets, daily range): BP systolic 135–189; BP diastolic 64–93; O2SAT 97–99
[2023-03-19] MEDS ORDERED: HYDROMORPHONE HCL 0.5 MG/ 0.5 ML SYRINGE IV ONE (01:35)
[2023-03-19] MEDS ORDERED: PROMETHAZINE 25MG/ML 1ML VIAL IV ONE (01:35)
[2023-03-19] MEDS ORDERED: HYDROMORPHONE HCL 0.5 MG/ 0.5 ML SYRINGE As Ordered ONE (01:48)
[2023-03-19] MEDS: LR 1,000 ML IV SCH (03:06)
[2023-03-19] MEDS ORDERED: IBUPROFEN 600MG TAB PO PRN (04:15)
[2023-03-19] MEDS ORDERED: MOM 30ML SUSPENSION UDC PO PRN (04:15)
[2023-03-19] MEDS ORDERED: DOCUSATE SODIUM 100MG CAPSULE PO PRN (04:15)
[2023-03-19] MEDS ORDERED: ACETAMINOPHEN TAB 650MG DOSE (2X325MG) PO PRN (04:15)
[2023-03-19] MEDS ORDERED: ANUSOL HC CREAM 30GM TOP PRN (04:15)
[2023-03-19] MEDS ORDERED: DIBUCAINE 1% OINTMENT 30GM TOP PRN (04:15)
[2023-03-19] MEDS ORDERED: RHOGAM 300MCG (1500IU) INJ IM SCH (04:15)
[2023-03-19] MEDS: IBUPROFEN 800 MG TAB PO PRN ×2 (04:23→18:15)
[2023-03-19] MEDS ORDERED: OXYTOCIN DRIP 30 UNITS in IV 1 EA IV SCH (06:00)
[2023-03-19] MEDS ORDERED: OXYTOCIN 30UNITS IN 0.9% NaCl 500ML IV BAG As Ordered ONE (06:09)
[2023-03-19] MEDS: ACETAMINOPHEN 500 MG TAB PO PRN ×2 (06:43→19:38)
[2023-03-19] MEDS: PRENATAL VITAMINS CHEWABLE TABLET PO SCH (08:25)
[2023-03-20] MEDS: IBUPROFEN 800 MG TAB PO PRN ×2 (03:55→14:25)
[2023-03-20 06:00] VITALS: BP 135/78; O2SAT 97
[2023-03-20] MEDS: PRENATAL VITAMINS CHEWABLE TABLET PO SCH (08:58)
[2023-03-21] MEDS ORDERED: MEASLES,MUMPS,RUBELLA VACCINE INJ (MMR-II) SC.IMMUN ONE (09:00)
== END 2023-03-20 18:00 | disposition home or self-care (01) | DRG 560 ==
LOC: M LDI 09:06 → M OBS 03-19 05:33
PROVIDERS: ADMIT Advanced Practice Midwife; ATTEND Advanced Practice Midwife
PROC: 3E033VJ Introduction of Other Hormone into Peripheral Vein, Percutaneous Approach (ICD-10-PCS; 2023-03-18)
PROC: 10E0XZZ Delivery of Products of Conception, External Approach (ICD-10-PCS; principal; 2023-03-19)
PROC: 10907ZC Drainage of Amniotic Fluid, Therapeutic from Products of Conception, Via Natural or Artificial Opening (ICD-10-PCS; 2023-03-19)
DX: O13.4 Gestational [pregnancy-induced] hypertension without significant proteinuria, complicating childbirth (principal); O98.32 Other infections with a predominantly sexual mode of transmission complicating childbirth; O72.1 Other immediate postpartum hemorrhage; O34.211 Maternal care for low transverse scar from previous cesarean delivery; Z3A.37 37 weeks gestation of pregnancy; A60.09 Herpesviral infection of other urogenital tract; Q82.8 Other specified congenital malformations of skin; Z86.14 Personal history of Methicillin resistant Staphylococcus aureus infection; Z88.0 Allergy status to penicillin; Z88.5 Allergy status to narcotic agent; Z91.040 Latex allergy status; Z79.82 Long term (current) use of aspirin; Z37.0 Single live birth; O99.892 Other specified diseases and conditions complicating childbirth

== ENCOUNTER → 2023-12-04 | Outpatient (REF) | payer OTHER ==
[~2023-12-04] MED LIST changes: +ASPI81TA26 PO; +FERR325T3 PO; +OMEP10CASR PO; +VALT500T PO
== END ==
LOC: M SFHCWAGY 16:53
PROVIDERS: ATTEND Nurse Practitioner Family
DX: R30.0 Dysuria (principal)

== ENCOUNTER → 2024-02-13 | Outpatient (CLI) | payer OTHER | LOC: M SOG 10:47 | PROVIDERS: ATTEND Physician Assistant | DX: M79.644 Pain in right finger(s) (principal) ==

== ENCOUNTER → 2024-05-03 | Outpatient (REF) | payer OTHER ==
[~2024-05-03] MED LIST changes: +CLEO300C2 PO
== END ==
LOC: M LAB REF 19:37
PROVIDERS: ATTEND Registered Nurse
DX: L05.01 Pilonidal cyst with abscess (principal)

== ENCOUNTER 2024-05-05 09:08 | Emergency (ER) | payer OTHER ==
[~2024-05-05] VITALS: Ht 170.2 cm; Wt 127.8 kg
[~2024-05-05 09:08] MED LIST changes: -CLEO300C2 PO
[2024-05-05 10:25] LABS: BASO # 0.1 10^3/uL (0.0-0.2); BASO % 0.8 % (0.0-1.0); EOS # 0.4 10^3/uL (0.0-0.5); EOS % 4.6 % (0.0-3.0); HEMATOCRIT 34.4 % (36.0-47.0); HEMOGLOBIN 10.1 g/dl (12.0-15.5); LYMPH # 1.2 10^3/uL (1.5-5.0); LYMPH % 15.9 % (24.0-44.0); MEAN CORPUSCULAR HEMOGLOBIN 24.6 pg (27.0-33.0); MEAN CORPUSCULAR HGB CONC 29.4 g/dl (32.0-36.5); MEAN CORPUSCULAR VOLUME 83.9 fl (80.0-96.0); MONO # 0.4 10^3/uL (0.0-0.8); MONO % 5.6 % (2.0-8.0); NEUTROPHILS # 5.6 10^3/uL (1.5-8.5); NEUTROPHILS % 72.1 % (36.0-66.0); PLATELET COUNT, AUTOMATED 388 10^3/uL (150-450); WHITE BLOOD COUNT 7.8 10^3/uL (4.0-10.0)
[2024-05-05 10:52] LABS: HCG, SERUM QUALITATIVE NEGATIVE (NEGATIVE)
[2024-05-05] MEDS: ACETAMINOPHEN TAB 650MG DOSE (2X325MG) PO ONE (11:30)
[2024-05-05] MEDS: LIDOCAINE W/EPINEPHRINE 1% 20ML VIAL SC ONE (11:35)
[2024-05-05] MEDS: EMLA CREAM 5GM TUBE (LIDOCAINE/PRILOCAINE) TOP ONE (11:55)
[2024-05-05] MEDS ORDERED: CLEO300C2 PO (12:38)
[2024-05-05] MEDS ORDERED: FLUC150T9 PO (12:38)
[2024-05-05 12:54] VITALS: BP 148/74; TEMP 97.9; O2SAT 99
== END 2024-05-05 12:56 | disposition home or self-care (01) ==
LOC: M ED 09:08
DX: L05.91 Pilonidal cyst without abscess (principal); Z86.14 Personal history of Methicillin resistant Staphylococcus aureus infection; Z88.0 Allergy status to penicillin; Z88.2 Allergy status to sulfonamides; Z88.1 Allergy status to other antibiotic agents; Z88.5 Allergy status to narcotic agent; Z91.040 Latex allergy status

== ENCOUNTER 2024-06-05 07:58 | Day surgery (SDC) | payer OTHER ==
[~2024-06-05] VITALS: Ht 170.2 cm; Wt 127.5 kg
[~2024-06-05 07:58] MED LIST changes: +CLEO300C2 PO; +LR 1,000 ML IV SCH
[2024-06-05] MEDS ORDERED: fentaNYL 100 MCG/2 ML INJECTION As Ordered ONE (08:59)
[2024-06-05] MEDS ORDERED: ONDANSETRON 4MG 2ML VIAL As Ordered ONE (08:59)
[2024-06-05] MEDS ORDERED: propofoL 200 MG/20 ML VIAL As Ordered ONE (08:59)
[2024-06-05] MEDS ORDERED: MIDAZOLAM INJ 2MG/2ML VIAL As Ordered ONE (08:59)
[2024-06-05] MEDS ORDERED: LIDOCAINE 2% 100MG/5ML SDV (FOR ANES.) As Ordered ONE (08:59)
[2024-06-05] MEDS ORDERED: ACETAMINOPHEN 1000MG 100ML IV BAG As Ordered ONE (10:22)
[2024-06-05] MEDS ORDERED: KETOROLAC 60MG 2ML VIAL As Ordered ONE (10:22)
[2024-06-05] MEDS ORDERED: ONDANSETRON 4MG 2ML VIAL IV PRN (11:40)
[2024-06-05] MEDS ORDERED: MORPHINE 2 MG/ML 1ML VIAL IV PRN (11:40)
[2024-06-05] MEDS ORDERED: oxyCODONE 5MG TAB PO PRN (11:40)
[2024-06-05] MEDS: fentaNYL 100 MCG/2 ML INJECTION IV PRN (12:21)
[2024-06-05 13:28] VITALS: BP 175/81; TEMP 97.7; O2SAT 96
== END 2024-06-05 13:34 | disposition home or self-care (01) ==
LOC: M SDC 07:58
PROVIDERS: ATTEND Orthopaedic Surgery Hand Surgery
DX: G56.02 Carpal tunnel syndrome, left upper limb (principal); Z88.0 Allergy status to penicillin; Z88.2 Allergy status to sulfonamides; Z88.5 Allergy status to narcotic agent; Z91.040 Latex allergy status
CPT/HCPCS: 29848; 81025; J0131; J0665; J1100; J1885; J2250; J2405; J3010

== ENCOUNTER → 2024-07-29 | Outpatient (CLI) | payer OTHER ==
[~2024-07-29] MED LIST changes: -LR 1,000 ML IV SCH
[2024-07-29 15:07] LABS: BASO # 0.1 10^3/uL (0.0-0.2); BASO % 1.2 % (0.0-1.0); EOS # 0.2 10^3/uL (0.0-0.5); EOS % 3.1 % (0.0-3.0); HEMATOCRIT 37.7 % (36.0-47.0); HEMOGLOBIN 11.3 g/dl (12.0-15.5); LYMPH # 1.2 10^3/uL (1.5-5.0); LYMPH % 20.9 % (24.0-44.0); MEAN CORPUSCULAR HEMOGLOBIN 25.7 pg (27.0-33.0); MEAN CORPUSCULAR VOLUME 85.7 fl (80.0-96.0); MONO # 0.4 10^3/uL (0.0-0.8); MONO % 7.3 % (2.0-8.0); NEUTROPHILS % 67.3 % (36.0-66.0); PLATELET COUNT, AUTOMATED 358 10^3/uL (150-450); WHITE BLOOD COUNT 5.9 10^3/uL (4.0-10.0)
[2024-07-29 15:12] LABS: ALKALINE PHOSPHATASE 67 U/L (46-116); ALT/SGPT 22 U/L (7.0-40); AST/SGOT 12 U/L (<34); BILIRUBIN,TOTAL 0.5 MG/DL (0.3-1.2); BLOOD UREA NITROGEN 12 MG/DL (9-23); CALCIUM LEVEL 9.3 MG/DL (8.5-10.1); CARBON DIOXIDE LEVEL 28 MMOL/L (20-31); CHLORIDE LEVEL 107 MMOL/L (98-107); CHOLESTEROL LEVEL 128 MG/DL (<200); CHOLESTEROL RISK RATIO 4.14 (<5); CREATININE FOR GFR 0.76 MG/DL (0.55-1.30); GLOMERULAR FILTRATION RATE > 60.0 (>60); GLUCOSE, FASTING 89 MG/DL (60-100); HDL CHOLESTEROL 30.9 MG/DL (>40); LDL CHOLESTEROL 62.7 MG/DL (<100); NON-HDL-C 97.1 MG/DL; POTASSIUM SERUM 4.4 MMOL/L (3.5-5.1); SODIUM LEVEL 137 MMOL/L (136-145); TOTAL PROTEIN 7.4 G/DL (5.7-8.2); TRIGLYCERIDES LEVEL 172 MG/DL (<150)
[2024-07-29 15:14] LABS: HEMOGLOBIN A1c 4.7 % (4.0-6.0); THYROID STIMULATING HORMONE 3.218 uIU/ML (0.55-4.78); TOTAL 25(OH) VITAMIN D 26.9 NG/ML (20.0-100.0)
== END ==
LOC: M PLALAB 09:52
PROVIDERS: ATTEND Physician Assistant
DX: E66.01 Morbid (severe) obesity due to excess calories (principal)

== ENCOUNTER → 2024-07-29 | Outpatient (REF) | payer OTHER ==
[2024-07-31 14:36] LABS: HPV APTIMA Not Detected (Not Detected)
== END ==
LOC: M SFHCWAGY 13:11
PROVIDERS: ATTEND Nurse Practitioner Family
DX: Z12.4 Encounter for screening for malignant neoplasm of cervix (principal)

== ENCOUNTER → 2024-08-25 | Outpatient (CLI) | payer OTHER ==
[2024-08-25 12:46] LABS: Trichomonas vaginalis (AMP) NOT DETECTED (NEGATIVE)
[2024-08-25 13:10] LABS: GC DNA AMPLIFICATION NEGATIVE (NEGATIVE)
== END ==
LOC: M RAD 10:57
PROVIDERS: ATTEND Physician Assistant Medical
DX: R22.1 Localized swelling, mass and lump, neck (principal); Z11.3 Encounter for screening for infections with a predominantly sexual mode of transmission

== ENCOUNTER → 2025-06-01 | Outpatient (CLI) | payer OTHER | LOC: M LAB 11:50 | PROVIDERS: ATTEND Family Medicine | DX: Z02.1 Encounter for pre-employment examination (principal); Z11.1 Encounter for screening for respiratory tuberculosis ==

== ENCOUNTER → 2025-08-20 | Outpatient (REF) | payer OTHER ==
[2025-08-20 16:42] LABS: HIV 1&2 SCREEN NEGATIVE (NEGATIVE)
[2025-08-20 16:49] LABS: HEPATITIS C VIRUS ABY INDEX < 0.02 INDEX (<0.8)
== END ==
LOC: M SFHCWAGY 15:27
PROVIDERS: ATTEND Advanced Practice Midwife
DX: Z11.3 Encounter for screening for infections with a predominantly sexual mode of transmission (principal); L98.9 Disorder of the skin and subcutaneous tissue, unspecified